=== PATIENT | male | born 1950 | race Caucasian/White ===

== ENCOUNTER 2024-10-23 13:27 | Emergency (ER) | payer OTHER ==
[2024-10-23] MEDS ORDERED: Sodium Chloride 0.9% 10 ML Syringe FLUSH PRN (13:34)
[2024-10-23 13:47] LABS: BASOPHILS PERCENT AUTO 0.6 % (0.0-1.0); EOSINOPHILS PERCENT AUTO 2.9 % (1.0-3.0); HEMATOCRIT 37.2 % (40.0-54.0); LYMPHOCYTES PERCENT AUTO 20.8 % (20.5-50.1); MEAN CORPUSCULAR HEMOGLOBIN 32.3 pg (27.0-34.0); MEAN CORPUSCULAR HGB CONC 32.3 g/dL (33.0-35.0); MEAN CORPUSCULAR VOLUME 100.3 fL (80-100); MONOCYTES PERCENT AUTO 9.2 % (2-8); NEUTROPHILS PERCENT AUTO 66.5 % (42.2-75.2); PLATELET COUNT,PLT 314 10^3/uL (150-450); RED BLOOD CELL COUNT 3.71 10^6/uL (4.6-6.2); WHITE BLOOD CELL COUNT,WBC 8.3 10^3/uL (5.0-10.0)
[2024-10-23] MEDS: Iopamidol 755 Mg/ML 100 ML Bottle IVPUSH ONE (13:50)
[2024-10-23 14:03] LABS: INR 0.9 (0.9-1.2); PROTHROMBIN TIME 9.4 SEC (9.0-12.0); PTT,PARTIAL THROMBOPLSTIN TIME 26.1 SEC (22.0-34.0)
[2024-10-23 14:08] LABS: ALANINE AMINOTRANSFERASE,ALT 21 U/L (16-63); ALBUMIN 4.4 g/dL (3.4-5.0); ALKALINE PHOSPHATASE 80 U/L (46-116); ANION GAP 16.3 mEq/L (7-13); ASPARTATE AMNIOTRANSFERASE,AST 25 U/L (15-37); BILIRUBIN TOTAL 0.3 mg/dL (0.2-1.0); BLOOD UREA NITROGEN,BUN 16 mg/dL (7-18); BUN/CREATININE RATIO 13.2 (No establ ref range); CALCIUM 9.9 mg/dL (8.5-10.1); CARBON DIOXIDE,CO2 29 mmol/L (21-32); CHLORIDE,CL 96 mmol/L (98-107); CREATININE 1.21 mg/dL (0.70-1.30); GLUCOSE RANDOM 104 mg/dL (70-99); MAGNESIUM 1.9 mg/dL (1.8-2.4); POTASSIUM,K 4.3 mmol/L (3.5-5.1); PROTEIN TOTAL,TP 8.8 g/dL (6.4-8.2); SODIUM,NA 137 mmol/L (136-145)
[2024-10-23 14:09] LABS: C-REACTIVE PROTEIN < 0.50 ng/dL (<=0.50); ESTIMATED GFR 64 mL/min (>=60); ETHANOL BLOOD MEDICAL < 3 mg/dL (0)
[2024-10-23 14:36] LABS: APPEARANCE,URINE CLEAR (CLEAR); BILIRUBIN,URINE NEGATIVE (NEGATIVE); COLOR,URINE YELLOW (YELLOW); GLUCOSE,URINE NEGATIVE (NEGATIVE); KETONES,URINE NEGATIVE (NEGATIVE); LEUKOCYTE ESTERASE,URINE TRACE (NEGATIVE); NITRITE,URINE NEGATIVE (NEGATIVE); OCCULT BLOOD,URINE TRACE-INTACT (NEGATIVE); PROTEIN,URINE NEGATIVE (NEGATIVE); UROBILINOGEN,URINE 0.2 mg/dL (0.2-1.0)
[2024-10-23] MEDS: Lidocaine 2% 20 ML MDV ONE (15:00)
[2024-10-23 15:16] LABS: BACTERIA,URINE MODERATE /HPF (0-FEW/HPF); EPITHELIAL CELLS,URINE FEW /HPF (NOT SEEN)
== END 2024-10-23 15:44 | disposition home or self-care (01) ==
LOC: DL.ED 13:27
DX: G43.409 Hemiplegic migraine, not intractable, without status migrainosus (principal); Z88.8 Allergy status to other drugs, medicaments and biological substances; W10.9XXA Fall (on) (from) unspecified stairs and steps, initial encounter
CPT/HCPCS: 36415; 70450; 70496; 70498; 80053; 80307; 81001; 82947; 83735; 84484; 85025; 85610; 85730; 86140; 87086; 87088; 87186; 93005; 93010; 99284; 99285; J2003; Q9967